=== PATIENT | male | born 1945 | race Caucasian/White ===

== ENCOUNTER → 2018-10-30 | Outpatient (CLI) | payer OTHER | LOC: YCFC.O 10:24 | PROVIDERS: ATTEND Family Medicine | DX: Z00.00 Encounter for general adult medical examination without abnormal findings (principal); R00.8 Other abnormalities of heart beat; I10 Essential (primary) hypertension; Z87.891 Personal history of nicotine dependence ==

== ENCOUNTER → 2018-11-21 | Outpatient (CLI) | payer OTHER ==
--- NOTE | 2018-11-22 10:27 | CT ---
Procedure: CT LUNG SCREENING Exam Date: 11/21/2018. Ordering Provider: Eric Burk Clinical Indication: LUNG SCREEN 35 pack years smoking. Quit less than one month ago. This patient meets eligibility criteria for low-dose CT lung cancer screening. Comparison: None available. Technique: Using a multislice scanner, sequential helical axial imaging was obtained in the thorax, 2.5 mm thickness, 2.5 mm separation, from the level of the thoracic inlet through the lung bases without IV contrast. A low dose protocol was utilized for BMI greater than 30: BMI: 32.8. CTDI: 2.86 mGy. 120. kVp. 75 mA. 2D sagittal and coronal reconstructed images, 6.0 mm thickness, were obtained. This exam was performed according to our departmental dose optimization program which includes use of automated exposure control, adjustment of the mA and/or kV according to patient size and/or use of iterative reconstruction technique. Nodule measurements under 10 mm are given as mean value of 3 axes diameters. FINDINGS: Lungs and large airways: Minimal reticulation noted in the upper lung corbett bilaterally decreasing toward the lung bases. 2 mm nodule abutting the posterior pleura of the right upper lobe on axial image 30. Pleural parenchymal scarring in the left lower lobe and inferior lingula. No abnormal nodules, no masses or focal infiltrates. Pleura and space: Bilateral focal thickening also abutting the fissural attachments. No effusion bilaterally or pneumothorax. Mediastinum and sasha: evaluation limited by low dose technique and lack of IV contrast. Small calcifications. No gross soft tissue mass or enlarged lymph nodes. Large gastric hiatal hernia. Heart and great vessels: Calcifications atherosclerotic in the proximal brachiocephalic vessels, aortic arch, and coronary arteries. Chest wall, lower neck, axillae: Evaluation also limited by same factors as described above. Heterogeneous thyroid gland. Normal-sized lymph nodes. Upper abdomen: No free air or fluid or fatty stranding in the included peritoneal space. Prominent left adrenal gland with mean Hounsfield density -9, consistent with an adrenal adenoma. No imaging follow-up recommended. Vascular calcifications in the celiac branches and the proximal abdominal aorta. Hiatal hernia is previously described.. Osseous structures: Evaluation limited by low dose MIP technique. Minimal spondylosis thoracic spine. Thoracic levoscoliosis. No lytic or blastic lesions. IMPRESSION: Early emphysematous changes upper lung corbett. No abnormal nodules and no masses. No focal infiltrates. [facility] Best Practice recommendations: one-year follow-up. Please see below for Lung RADS category and FOLLOW-UP.* *Lung RADS category Category 1 - No nodule or definitely benign nodules (probability of malignancy less than 1%). Follow-up: Continue annual screening with Low Dose Chest CT in 12 months. Electronically signed by: Joao Campbell MD 11/22/2018 10:24 AM CDT
== END ==
LOC: CT 14:00
PROVIDERS: ATTEND Family Medicine
DX: Z87.891 Personal history of nicotine dependence (principal)

== ENCOUNTER 2019-08-05 09:05 | Emergency (ER) | payer OTHER ==
[2019-08-05] MEDS ORDERED: ONDANSETRON INJ 4 MG/2 ML VIAL IV ONE (09:47)
[2019-08-05] MEDS ORDERED: MORPHINE SULFATE INJ 10 MG/ML VIAL IV ONE (09:47)
[2019-08-05] MEDS ORDERED: SODIUM CHLORIDE 0.9% 1000ML 1,000 ML IVS ONE (09:49)
--- NOTE | 2019-08-05 09:57 | ED.PDOC ---
History of Present Illness - General Chief Complaint: Abdominal Pain Time Seen by Provider: 08/05/19 09:36 Information Source: patient, RN notes reviewed, Vital Signs reviewed Exam Limitations: no limitations Additional Information: this is a 73-year-old gentleman with known history of hypertension and smoking who presents today with complaints of abdominal pain that started Monday. This was 2 days ago. He states that he is felt that several times in the past but always awakened with it being resolved. He states that this particular time it did not resolve the next morning. Yesterday he had 2 bowls of cereal and forced emesis to make himself feel better. He has had some nausea without any emesis reported. He states he has taken Pepto-Bismol without improvement as well. He states that the pain is about a 4/10 in intensity and currently about a 3/10 in intensity. He denies having any recent fevers or chills. His last BM was on Monday. He has never had any abdominal surgeries. He did have col onoscopy approximately 5 years ago. He does take Protonix as well on a daily basis. He has never had an EGD performed. He denies any recent blood in his stools. He denies any issues with urination as well. Review of Systems - Review of Systems Constitutional: Denies: chills, fever, malaise EENTM: States: no symptoms reported Respiratory: States: no symptoms reported Cardiology: States: no symptoms reported. Denies: chest pain, edema Gastrointestinal/Abdominal: States: abdominal pain, nausea. Denies: constipation, diarrhea, vomiting Genitourinary: States: no symptoms reported Musculoskeletal: States: no symptoms reported Skin: States: no symptoms reported Neurological: States: no symptoms reported Endocrine: States: no symptoms reported Hematologic/Lymphatic: States: no symptoms reported All other Systems: Reviewed and Negative Family Medical History - Family History Father Family History: Unknown Living Status: Physical Exam - Physical Exam General Appearance: Alert, No apparent distress Eyes, Ears, Nose, Throat Exam: PERRL/EOMI, normal ENT inspection, pharynx normal Neck: non-tender, full range of motion, supple, normal inspection Respiratory: chest non-tender, lungs clear, normal breath sounds, no respiratory distress, no accessory muscle use Cardiovascular/Chest: normal peripheral pulses, regular rate, rhythm, no edema, no gallop, no JVD, no murmur Peripheral Pulses: No deficit Gastrointestinal/Abdominal: soft, no organomegaly, no pulsatile mass, abnormal bowel sounds - diminished, tenderness - noted in the right upper quadrant Rectal Exam: deferred Back Exam: normal inspection, no CVA tenderness, no vertebral tenderness Extremity: normal range of motion, non-tender, normal inspection, no pedal edema Neurologic: field trainer II-XII nml as tested, no motor/sensory deficits, alert, normal mood/affect, oriented x 3 Skin Exam: normal color, warm/dry Lymphatic: no adenopathy Progress - Progress Progress: 08/05/19 12:[address] Negro. He is comfortable with the patient going home on a fat-free diet and Augmentin. Will follow up in clinic. Of course with adequate warnings of when to return if need be. - Results/Orders Results/Orders: IMPRESSION: Cholelithiasis of the gallbladder with sludge and slight dilation of the lumen. Wall thickness upper normal range. Nontender with transducer pressure. Common bile duct caliber normal. Pancreas and abdominal aorta not seen. Liver unremarkable. No ascites. Electronically signed by: Joao Campbell MD 08/05/2019 12:19 PM LUMBER STACKER OPERATOR 08/05/19 09:47 IV:Start .ONCE Laboratory Results - last 24 hr 08/05/19 08/05/19 08/05/19 10:00 10:00 10:00 WBC 14.3 H RBC 6.37 H Hgb 19.1 H Hct 56.3 H MCV 88.3 MCH 29.9 MCHC 33.9 RDW 13.6 Plt Count 219 MPV 9.8 Absolute Neuts (auto) 12.70 H Absolute Lymphs (auto) 0.70 L Absolute Monos (auto) 0.80 Absolute Eos (auto) 0.00 Absolute Basos (auto) 0.10 Neutrophils % 89.2 H Lymphocytes % 4.8 L Monocytes % 5.4 Eosinophils % 0.2 L Basophils % 0.4 Sodium 136 Potassium 4.2 Chloride 97 L Carbon Dioxide 24 Anion Gap 19.2 H BUN 12 Creatinine 0.88 BUN/Creatinine Ratio 13.6 Random Glucose 142 H Serum Osmolality 274.1 L Lactic Acid 1.6 Calcium 9.9 Total Bilirubin 1.4 H AST 20 ALT 26 Alkaline Phosphatase 113 Serum Total Protein 8.7 H Albumin 4.8 Globulin 3.9 H Albumin/Globulin Ratio 1.2 Urine Color Urine Appearance Urine pH Ur Specific [place] Urine Protein Urine Glucose (UA) Urine Ketones Urine Blood Urine Nitrite Urine Bilirubin Urine Urobilinogen Ur Leukocyte Esterase Urine RBC Urine WBC Ur Epithelial Cells Urine Bacteria Urine Mucus 08/05/19 10:00 WBC RBC Hgb Hct MCV MCH MCHC RDW Plt Count MPV Absolute Neuts (auto) Absolute Lymphs (auto) Absolute Monos (auto) Absolute Eos (auto) Absolute Basos (auto) Neutrophils % Lymphocytes % Monocytes % Eosinophils % Basophils % Sodium Potassium Chloride Carbon Dioxide Anion Gap BUN Creatinine BUN/Creatinine Ratio Random Glucose Serum Osmolality Lactic Acid Calcium Total Bilirubin AST ALT Alkaline Phosphatase Serum Total Protein Albumin Globulin Albumin/Globulin Ratio Urine Color Yellow Urine Appearance Clear Urine pH 7.0 Ur Specific [place] 1.020 Urine Protein Trace Urine Glucose (UA) Negative Urine Ketones 15 H Urine Blood Trace-intact H Urine Nitrite Negative Urine Bilirubin Small H Urine Urobilinogen 2.0 H Ur Leukocyte Esterase Negative Urine RBC 1-3 Urine WBC 0-1 Ur Epithelial Cells 0 Urine Bacteria Rare Urine Mucus Moderate Departure - Departure Clinical Impression: Biliary colic, Hypertension Cholelithiasis Qualifiers: Cholelithiasis location: gallbladder Cholecystitis presence: without cholecystitis Biliary obstruction: without biliary obstruction Qualified Code(s): K80.20 - Calculus of gallbladder without cholecystitis without obs truction Time of Disposition: 13:11 Disposition: Discharge to Home or Self Care Condition: Good Departure Forms: ED Discharge - Pt. Copy, Patient Portal Self Enrollment Instructions: DI for Abdominal Pain-Adult, Low Cholesterol, Saturated Fat, and Trans Fat Diet Diet: bland diet, low fat, low cholesterol Prescriptions: Acetaminophen W/ Codeine [Tylenol W/ CODEINE #3] 1 ea PO Q6HR #20 Ondansetron Tab [Zofran Tab] 4 mg PO Q8HRS #12 tab Amoxicillin & Pot Clavulanate [Augmentin Tab] 875 mg PO BID #14 tab Home Medications: Ambulatory Orders Acetaminophen W/ Codeine [Tylenol W/ CODEINE #3] 1 ea PO Q6HR #20 08/05/19 Amoxicillin & Pot Clavulanate [Augmentin Tab] 875 mg PO BID #14 tab 08/05/19 Ondansetron Tab [Zofran Tab] 4 mg PO Q8HRS #12 tab 08/05/19 Additional Instructions: adhere to a low fat diet. Follow-up in surgical clinic tomorrow morning at 11 AM. If having any fever or chills or worsening of pain return to the emergency room immediately for reevaluation.
--- NOTE | 2019-08-05 12:20 | US ---
EXAM DESCRIPTION: Abdomen,Limited: ULTRASOUND. CLINICAL HISTORY: RUQ PAIN COMPARISON: None. TECHNIQUE: Transabdominal scanning: benitez-scale mode. Doppler mode. FINDINGS: Gallbladder: Slightly dilated. Multiple echogenic stones with acoustic shadowing. Largest diameter 1.3 cm with a 1.5 cm stone in the gallbladder neck. Also abundant sludge. No fluid around the gallbladder. Wall thickness upper normal limits 2.9 mm. Non-tender with transducer pressure. Common bile duct: caliber 4.6 mm within normal limits. Liver: normal echogenicity; contour liver capsule smooth where seen. No fluid around the liver. Intrahepatic biliary ducts normal caliber. Doppler hepatopedal flow and normal caliber portal vein.. Long axis right lobe 16.1 cm. Pancreas: Not well visualized. Duct not seen. Proximal abdominal aorta: Not seen.. IVC: visualized and normal caliber. Right kidney: long axis measures 10.7 cm. Normal cortical Echogenicity. Normal cortical thickness. No echogenic stones or hydronephrosis. IMPRESSION: Cholelithiasis of the gallbladder with sludge and slight dilation of the lumen. Wall thickness upper normal range. Nontender with transducer pressure. Common bile duct caliber normal. Pancreas and abdominal aorta not seen. Liver unremarkable. No ascites. Electronically signed by: Joao Campbell MD 08/05/2019 12:19 PM STUDY ASSISTANT
[2019-08-05] MEDS ORDERED: ONDANSETRON ODT 8 MG TAB SL ONE (13:27)
[2019-08-05 13:38] VITALS: TEMP 97.9
[2019-08-05 13:39] VITALS: O2SAT 95
[2019-08-05 13:41] VITALS: BP 162/104
== END 2019-08-05 13:30 | disposition home or self-care (01) ==
LOC: ER 09:05
DX: K50.80 Crohn's disease of both small and large intestine without complications (principal); Z79.899 Other long term (current) drug therapy
CPT/HCPCS: 36415; 76775; 80053; 81001; 83605; 85025; J2270; J2405; J7030